=== PATIENT | male | born 1985 | race Caucasian/White ===

== ENCOUNTER 2020-11-08 23:44 | Emergency (ER) | payer BC ==
[~2020-11-08] VITALS: Ht 172.7 cm; Wt 81.7 kg
--- NOTE | 2020-11-08 23:44 | NUR ---
PT BIB [facility], PREBOOK. TAKEN TO [facility]
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
--- NOTE | 2020-11-08 23:47 | NUR ---
Dr. Del Rio examining patient.
[2020-11-08 23:49] VITALS: BP 141/101
--- NOTE | 2020-11-08 23:57 | NUR ---
PATIENT BIB [facility]. PATIENT EXAMINED BY DR. FUNG. PATIENT MEDICALLY CLEARED AND RELEASED IN CUSTODY IN STABLE CONDITION. ORIGINAL PRE-BOOK FORM GIVEN TO OFFICER S[facility] #[id number].
== END 2020-11-08 23:57 ==
LOC: MED 23:44
DX: Z02.89 Encounter for other administrative examinations (principal); V88.9XXA Person injured in other specified (collision)(noncollision) transport accidents involving nonmotor vehicle, nontraffic, initial encounter; Y93.89 Activity, other specified; Y92.89 Other specified places as the place of occurrence of the external cause; Y99.8 Other external cause status
CPT/HCPCS: 99283